=== PATIENT | male | born 1965 | race Two or more races ===

== ENCOUNTER 2025-01-21 11:08 | Emergency (ER) | payer MEDICAID, SELFPAY ==
[2025-01-21 11:09] VITALS: BMI 19.8
--- NOTE | 2025-01-21 11:13 | EKG_ITS ---
[facility] Test Date: 2025-01-21 Pat Name: BREN FRIAS Department: Room: - Gender: Male [employer]: : 1965 Requested By: ED Temporary Provider Order Number: [id number] Reading MD: ED Temporary Provider Measurements Intervals [place] Rate: 67 P: 65 CA: 154 QRS: 67 QRSD: 86 T: 72 QT: 433 QTc: 460 Interpretive Statements SINUS RHYTHM No previous ECG available for comparison /store/S0/[id number]/ecg/[id number].pdf
[2025-01-21 11:24] VITALS: BP 233/106; PULSE 62; RESP 18; TEMP 36.6; O2SAT 99
--- NOTE | 2025-01-21 11:30 | EDRME_ITS ---
Rapid Medical Screening Exam FORMERLY [facility], [facility] Arrival date/time: 01/21/25 11:08 59-year-old male with no known medical history presents to the emergency room with a chief complaint of 10 out of 10 sternal chest pain and back pain x 1 day. Patient states began this morning and he is unable to stand straight. I have greeted and performed a focused initial assessment of this patient. A comprehensive ED assessment and evaluation of the patient, analysis of all test results, and completion of the medical decision making process will be conducted by additional ED providers. Chief Complaint: Chest Pain Vital signs: Vital Signs Temperature 98 F 01/21/25 11:24 Pulse Rate 62 01/21/25 11:24 Respiratory Rate 18 01/21/25 11:24 Blood Pressure 233/106 H 01/21/25 11:24 Pulse Oximetry (%) 99 01/21/25 11:24 Oxygen Delivery Method Room Air 01/21/25 11:24 Vital signs reviewed by provider: Yes
--- NOTE | 2025-01-21 11:30 | XR_ITS ---
Examination: PA lateral chest 2 views TECHNIQUE: Upright PA lateral chest 2 views Exam date 9: January 21, 2025 1153 hours Comparison December 29, 2012 INDICATIONS: Onset chest pain today. FINDINGS: Normal heart size Moderate hyperexpansion. No pneumonia or pulmonary edema IMPRESSION: Moderate hyperexpansion No pneumonia or pulmonary edema
[2025-01-21 12:39] LABS: Basophils # (Auto) 0.1 Thou/mm3 (0.0-0.2); Basophils % (Auto) 1 % (0-2.5); Eosinophils # (Auto) 0.1 Thou/mm3 (0.0-0.5); Eosinophils % (Auto) 0 % (0-10); Hemoglobin 16.2 g/dL (13.5-16.0); Immature Granulocytes % (Auto) 0 % (0-0); Immature Granulocytes Auto 0.03 Thou/mm3 (0.00-0.00); Lymphocytes # (Auto) 2.9 Thou/mm3 (1.0-4.8); Lymphocytes % (Auto) 21 % (10-50); Mean Corpuscular HGB Conc 33.8 g/dl (31.0-37.0); Mean Corpuscular Hemoglobin 29.1 pg (25.0-35.0); Mean Corpuscular Volume 86 fL (80-100); Monocytes # (Auto) 0.9 Thou/mm3 (0.0-0.8); Monocytes % (Auto) 6 % (0-12); Neutrophils # (Auto) 10.1 Thou/mm3 (1.8-7.7); Neutrophils % (Auto) 72 % (37-80); Nucleated Red Blood Cell % 0 /100 WBC (0); Platelet Count 307 Thou/mm3 (140-440); Red Blood Count 5.56 Miln/mm3 (4.50-5.90); White Blood Count 14.1 Thou/mm3 (3.8-10.6)
[2025-01-21 12:57] LABS: B-Type Natriuretic Peptide 42 pg/mL (0-100)
[2025-01-21 13:07] LABS: Alanine Aminotransferase 13 U/L (10-49); Albumin, Serum 4.8 gm/dL (3.4-4.8); Albumin/Globulin Ratio 1.7 (1.2-2.2); Alcohol, Blood Medical < 3.0 mg/dL (0-10.0); Alkaline Phosphatase 94 U/L (46-116); Anion Gap 9 (7-16); Aspartate Amino Transferase 22 U/L (0-34); BUN/Creatinine Ratio 21 Ratio (12-20); Blood Urea Nitrogen 21 mg/dL (9-23); Calcium 9.4 mg/dL (8.3-10.6); Calcium (Corrected) 9.4 mg/dL (8.5-10.1); Carbon Dioxide 27.1 mMol/L (20.0-31.0); Chloride 104 mMol/L (98-107); Estimated Creatinine Clearance 64.7 mL/min (>60); Globulin 2.9 gm/dL (2.3-3.5); Glucose 116 mg/dL (74-106); LDH (Lactate Dehydrogenase) 211 U/L (120-246); Magnesium 2.1 mg/dL (1.6-2.6); Osmolality,Calculated 283 (275-295); Potassium 3.7 mMol/L (3.4-5.1); Sodium 140 mMol/L (136-145); Total Protein 7.7 gm/dL (5.7-8.2); Troponin I < 0.020 ng/mL (0.0-0.045); eGFR > 60 See Note
[2025-01-21 13:31] VITALS: BP 208/103; PULSE 72
[2025-01-21] MEDS: cloNIDine HCL 0.1 MG TABLET PO (13:31)
[2025-01-21 13:42] LABS: Partial Thromboplastin Time 29.6 Seconds (22.0-36.0); Prothrombin Time 11.1 Seconds (9.0-12.2)
[2025-01-21 13:55] LABS: Collection Type, Urine Clean Catch; Squamous Epithelial Cell,Urine 0 /hpf (0-5)
[2025-01-21 14:03] LABS: Bacteria,Urine Rare; Bilirubin,Urine Negative (Negative); Blood,Urine Negative (Negative); Clarity,Urine Clear (Clear/Hazy); Color,Urine Yellow (Lt Yel-Yel); Glucose, Urine Negative (Negative); Ketones,Urine 1+ (Negative); Leukocyte Esterase,Urine Negative (Negative); Nitrite,Urine Negative (Negative); Protein,Urine 1+ (Neg - Trace); RBC,Urine 3 /hpf (0-3); Specific Gravity,Urine 1.032 (1.001-1.035); WBC,Urine 2 /hpf (0-5)
[2025-01-21 14:19] LABS: Amphetamine/Methamp Scrn,U Positive (Negative); Barbiturate Screen,Urine Negative (Negative); Benzodiazepines Screen,Urine Negative (Negative); Benzoylecgonine Screen, Ur Negative (Negative); Fentanyl Screen,Urine Negative (Negative); Opiate Screen,Urine Negative (Negative); THC Screen,Urine Positive (Negative)
--- NOTE | 2025-01-21 14:39 | PC.NURSE ---
nax 1 1443
--- NOTE | 2025-01-21 15:17 | PD.EDADULT ---
ED General RME/HPI General Chief complaint: Chest Pain Stated complaint: CHEST PAIN AND SOB SINCE THIS AM Time Seen by Provider: 01/21/25 15:12 Arrival date/time: 01/21/25 11:08 CC: Chest pain abdominal pain HPI onset for 1 day. The patient is known for NSTEMI longstanding methamphetamine abuse. Family bedside state the pain has been persistent. Patient is awake alert oriented x 3 no focal deficits. Is not in any acute distress with stable vital signs. RME / HPI RME / HPI narrative: 01/21/25 11:08 59-year-old male with no known medical history presents to the emergency room with a chief complaint of 10 out of 10 sternal chest pain and back pain x 1 day. Patient states began this morning and he is unable to stand straight. I have greeted and performed a focused initial assessment of this patient. A comprehensive ED assessment and evaluation of the patient, analysis of all test results, and completion of the medical decision making process will be conducted by additional ED providers. Related Data Previous Rx's ?Medication ?Instructions ?Recorded hydrocodone 5 mg-acetaminophen 325 1 tab PO BID PRN pain #10 tabs 03/07/24 mg tablet ibuprofen 600 mg tablet 600 mg PO Q6H #30 tabs 03/07/24 Allergies Allergy/AdvReac Type Severity Reaction Status Date / Time NKA* Allergy Uncoded 01/21/25 11:11 Review of Systems Review of Systems Narrative Review of Systems: GEN: No fever, no chills, no weight loss EYES: No discharge, no visual changes, no pain HEENT: No ear pain, no congestion, no sore throat PULM: No shortness of breath, no cough, no congestion CV: + chest pain, no dyspnea on exertion, no palpitations GI: No nausea, no vomiting, no diarrhea, no pain, no constipation : No frequency, no urgency, no dysuria MUSC/SKEL: No joint pain, no back pain SKIN: No rash PSYCH: No hallucinations, no depression HEME/LYMPH: No easy bleeding or bruising tendencies NEURO: No weakness, no headache Past Medical History Social History SMOKING STATUS: Current some day smoker ED Exam Narrative Physical exam: [General: Not in any acute distress Head normocephalic HEENT: Within acceptable limits Neck is supple nontender Chest equal chest rise nontender to palpation Respiratory: Clear to auscultation no wheezes crackles or rubs CV: Rate rhythm is regular no murmurs rubs or clicks Abdomen is soft nontender no masses positive bowel sounds all 4 quadrants Back: No CVA tenderness no spinous process tenderness from cervical spine thoracic and lumbar spine Skin: Intact no petechiae rash induration ulceration or crepitus Extremities: Moving all extremity against resistance cap refill less than 2 seconds neurosensory intact Neuro: Awake alert oriented x3 Glascow coma 15 no focal deficits] Course Quality Measures none Orders Category Date Time Status EKG (ED ONLY) *Do not use* NOW Care 01/21/25 11:14 Completed EKG (ED Only) Stat Exams 01/21/25 11:13 Draft XR chest 2V Stat Exams 01/21/25 11:30 Completed Alcohol, Blood Medical Stat Lab 01/21/25 12:09 Completed B-Type Natriuretic Peptide Stat Lab 01/21/25 12:09 Completed CBC Stat Lab 01/21/25 12:09 Completed Comprehensive Metabolic Panel Stat Lab 01/21/25 12:09 Completed Drug Screen,Urine Stat Lab 01/21/25 13:44 Completed LDH (Lactate Dehydrogenase) Stat Lab 01/21/25 12:09 Completed Magnesium Stat Lab 01/21/25 12:09 Completed Partial Thromboplastin Time Stat Lab 01/21/25 12:09 Completed Prothrombin Time with INR Stat Lab 01/21/25 12:09 Completed Troponin I Stat Lab 01/21/25 12:09 Completed Urinalysis Stat Lab 01/21/25 13:44 Completed cloNIDine HCL [Catapres] Med 01/21/25 11:31 Discontinued 0.1 mg PO X1 ONE Vital Signs Vital signs: Vital Signs Temperature 98 F 01/21/25 11:24 Pulse Rate 62 01/21/25 11:24 Respiratory Rate 18 01/21/25 11:24 Blood Pressure 233/106 H 01/21/25 11:24 Pulse Oximetry (%) 99 01/21/25 11:24 Oxygen Delivery Method Room Air 01/21/25 11:24 [facility] Patient data External records reviewed:: [facility] previous records Clinical information provided by:: patient and family Social determinants that could affect healthcare access:: none Patient has the following chronic illnesses:: Methamphetamine abuse How is presenting disease/condition affected by chronic disease/condition?: exacerbated by Evaluation data The following diagnostics were reviewed and interpreted by me:: lab results, radiology exam(s) and EKG tracing(s) Lab and/or radiology exams considered but not ordered:: CBC shows mild leukocytosis of 14.1 no anemia thrombocytopenia Coags within acceptable limits CMP shows no significant electrolyte imbalances renal impairment transaminitis or T. bili elevation BNP is negative Troponin is negative Urine is negative for UTI U tox is positive for methamphetamines and marijuana. Chest x-ray is negative for any acute finding requires emergent or immediate intervention. Interpretation Summary: Hypertension is probably driven by the methamphetamines use had a long conversation with the family member and the patient about stopping methamphetamine use they are to follow-up with a family care provider if there is worsening of symptoms to return the emergency room for further evaluation. None Medications Medications considered but not ordered:: None Medication administrations:: Medication Administration History Discontinued Medications Clonidine (Clonidine Hcl 0.1 Mg Tablet) 0.1 mg PO X1 ONE Stop: 01/21/25 11:32 Last Admin: 01/21/25 13:31 Dose: 0.1 mg Documented By: ER None Consultations Consultation(s) initiated? (list below): No Diagnosis Differential Diagnosis ED Complaint MDM: Hypertension ACS methamphetamine use Most likely diagnosis given after review of the tests above:: Hypertension chest pain methamphetamine use Admission Indicated Admission indicated?: not indicated Explain why admission is indicated or not indicated:: Stable for discharge Admission Request Was there a request for admission?: No Disposition Plan Disposition Plan: Discharge Discharge Attestation Discharge Attestation: The patient and all family members were given an opportunity to ask questions and understood the discharge instructions. Discharge instructions specifically effects, indications for sooner follow up or return to the emergency department, and the expected course of current diagnosis. Patient condition: Stable Medical Decision Making Differential Diagnosis Differential Diagnosis: Hypertension ACS methamphetamine use Lab Data 01/21/25 12:09 01/21/25 12:09 Labs: Lab Results 01/21/25 01/21/25 Range/Units 12:09 13:44 WBC 14.1 H (3.8-10.6) Thou/mm3 RBC 5.56 (4.50-5.90) Miln/mm3 Hgb 16.2 H (13.5-16.0) g/dL Hct 48.0 (41.0-53.0) % MCV 86 (80-100) fL MCH 29.1 (25.0-35.0) pg MCHC 33.8 (31.0-37.0) g/dl RDW Std Deviation 42.0 (35.1-43.9) fL Plt Count 307 (140-440) Thou/mm3 Neut % (Auto) 72 (37-80) % Lymph % (Auto) 21 (10-50) % [place] % (Auto) 6 (0-12) % Eos % (Auto) 0 (0-10) % Baso % (Auto) 1 (0-2.5) % Neut # (Auto) 10.1 H (1.8-7.7) Thou/mm3 Lymph # (Auto) 2.9 (1.0-4.8) Thou/mm3 [place] # (Auto) 0.9 H (0.0-0.8) Thou/mm3 Eos # (Auto) 0.1 (0.0-0.5) Thou/mm3 Baso # (Auto) 0.1 (0.0-0.2) Thou/mm3 Immature Gran # (Auto) 0.03 H (0.00-0.00) Thou/mm3 Absolute Nucleated RBC 0.00 (0.00-0.00) Thou/mm3 Immature Gran % 0 (0-0) % Nucleated RBC % 0 (0) /100 WBC PT 11.1 (9.0-12.2) Seconds INR 1.0 (0.9-1.3) APTT 29.6 (22.0-36.0) Seconds Sodium 140 (136-145) mMol/L Potassium 3.7 (3.4-5.1) mMol/L Chloride 104 (98-107) mMol/L Carbon Dioxide 27.1 (20.0-31.0) mMol/L Anion Gap 9 (7-16) BUN 21 (9-23) mg/dL Creatinine 1.0 (0.6-1.3) mg/dL Estim Creat Clear Calc 64.7 (>60) mL/min eGFR > 60 (60 - ) See Note BUN/Creatinine Ratio 21 H (12-20) Ratio Glucose 116 H (74-106) mg/dL Calculated Osmolality 283 (275-295) Calcium 9.4 (8.3-10.6) mg/dL Corrected Calcium 9.4 (8.5-10.1) mg/dL Magnesium 2.1 (1.6-2.6) mg/dL Total Bilirubin 1.0 (0.3-1.2) mg/dL AST 22 (0-34) U/L ALT 13 (10-49) U/L Alkaline Phosphatase 94 (46-116) U/L Lactate Dehydrogenase 211 (120-246) U/L Troponin I < 0.020 (0.0-0.045) ng/mL B-Natriuretic Peptide 42 (0-100) pg/mL Total Protein 7.7 (5.7-8.2) gm/dL Albumin 4.8 (3.4-4.8) gm/dL Globulin 2.9 (2.3-3.5) gm/dL Albumin/Globulin Ratio 1.7 (1.2-2.2) Ur Collection Type Clean Catch Urine Color Yellow (Lt Yel-Yel) Urine Clarity Clear (Clear/Hazy) Urine pH 7.0 (5.0-7.0) Ur Specific [place] 1.032 (1.001-1.035) Urine Protein 1+ A (Neg - Trace) Urine Glucose (UA) Negative (Negative) Urine Ketones 1+ A (Negative) Urine Blood Negative (Negative) Urine Nitrite Negative (Negative) Urine Bilirubin Negative (Negative) Urine Urobilinogen (Auto) 3.0 (0.0-1.0) mg/dL Ur Leukocyte Esterase Negative (Negative) Urine RBC 3 (0-3) /hpf Urine WBC 2 (0-5) /hpf Ur Squamous Epith Cells 0 (0-5) /hpf Urine Bacteria Rare (None) Urine Opiates Screen Negative (Negative) Urine Fentanyl Screen Negative (Negative) Ur Barbiturates Screen Negative (Negative) U Amphetamin/Meth Scrn Positive A (Negative) U Benzodiazepines Scrn Negative (Negative) U Cocaine Metab Screen Negative (Negative) U Marijuana (THC) Screen Positive A (Negative) Ethyl Alcohol < 3.0 (0-10.0) mg/dL Discharge Plan Plan Patient Disposition: HOME (Self Care) Patient condition on transfer: Stable Prescriptions/Referrals Prescriptions/Med Rec: No Action hydrocodone-acetaminophen 5-325 mg tablet 1 tab PO BID MDD 10 PRN (Reason: pain) Qty: 10 0RF ibuprofen 600 mg tablet 600 mg PO Q6H Qty: 30 0RF Referrals: Randall Loya MD [Primary Care Provider] - In 1 week Problem List Clinical Impression: Atypical chest pain, Hypertension, Methamphetamine use Patient/Caregiver Discharge Instructions Education Materials: ED Chest Pain, Uncertain Cause, ED High Blood Pressure ... Additional Instructions: Stop taking methamphetamines follow-up promptly with your doctor. Print Language: Yi Stand Alone Forms: Faith Award Info., Work/School Release, Patient Portal Info Letter PA/[employer] Supervising Physician PA/[employer] Supervising Physician: Jr Chaney ENP
[2025-01-21 15:31] VITALS: BP 142/82; PULSE 78; O2SAT 99
== END 2025-01-21 15:32 | disposition home or self-care (01) ==
PROVIDERS: Nurse Practitioner Family; Emergency Provider Emergency Medicine; PCP Family Medicine
DX: R07.89 Other chest pain (principal); I10 Essential (primary) hypertension; F15.10 Other stimulant abuse, uncomplicated; D72.829 Elevated white blood cell count, unspecified; F17.200 Nicotine dependence, unspecified, uncomplicated
CPT/HCPCS: 36415; 71046; 80053; 80307; 80320; 81001; 83615; 83735; 83880; 84484; 85025; 85610; 85730; 93005; 99283; A9270; G0480